=== PATIENT | female | born 1980 | race Caucasian/White ===

== ENCOUNTER 2017-06-17 12:28 | Emergency (ER) | payer MEDICAID ==
[2013-11-24 09:08] VITALS: BMI 36.4
[~2017-06-17 12:28] MED LIST: ADVAIR 250/501 DISK INH; HYDROCODONE-APA1 TAB PO; VENTOLIN HFA18 GM INH; ZANAFLEX4 MG PO
== END 2017-06-17 15:02 | disposition home or self-care (01) ==
LOC: D.ER 12:28
DX: M25.552 Pain in left hip (principal); M54.5 Low back pain; F17.200 Nicotine dependence, unspecified, uncomplicated

== ENCOUNTER → 2017-07-08 12:45 | Outpatient (CLI) | payer MEDICAID ==
[2013-11-24 09:08] VITALS: BMI 36.4
== END | disposition home or self-care (01) ==
LOC: D.CT 12:45
DX: J34.1 Cyst and mucocele of nose and nasal sinus (principal)

== ENCOUNTER 2017-07-13 17:19 | Emergency (ER) | payer MEDICAID ==
[2013-11-24 09:08] VITALS: BMI 36.4
== END 2017-07-13 19:00 | disposition left against medical advice (07) ==
LOC: D.ER 17:19
DX: R10.84 Generalized abdominal pain (principal)

== ENCOUNTER 2017-07-23 05:20 | Day surgery (SDC) | payer MEDICAID ==
[2017-07-22 09:06] LABS: BASOPHILS 0.3 % (0-2); EOSINOPHILS 1.2 % (0-7); HEMOGLOBIN 14.1 g/dL (12-16); IMMATURE GRANULOCYTES 0.3 % (0-5); LYMPHOCYTES 24.5 % (15-50); MCHC 33.6 g/dL (31.0-37.0); MCV 89.4 fL (80.0-100.0); MEAN PLATELET VOLUME 11.8 fL (7.4-10.4); MONOCYTES 7.9 % (2-11); NEUTROPHILS 65.8 % (40-80); RDW 12.6 % (11.5-14.5); WBC 11.1 10x3/uL (4.8-10.8)
[2017-07-22 09:10] LABS: CALC OSMOLALITY 276 mosm/kg (275-300); CALCIUM 9.3 mg/dL (8.5-10.1); CARBON DIOXIDE 26.4 mmol/L (21.0-32.0); CHLORIDE - SERUM 103 mmol/L (98-107); CREATININE - SERUM 0.8 mg/dL (0.6-1.3); GLUCOSE 98 mg/dL (74-106); PLATELET COUNT 366 10x3/uL (130-400); POTASSIUM - SERUM 4.5 mmol/L (3.5-5.1); SODIUM 139 mmol/L (136-145); UREA NITROGEN 10 mg/dL (7-18); eGFR NON AFRICAN AMERICAN 86 mL/min (90-120)
[~2017-07-23] VITALS: Ht 162.6 cm; Wt 99.3 kg
--- NOTE | ~2017-07-23 | OP ---
PATIENT NAME: CARMENZA FAJARDO MEDICAL RECORD: [id number] :82 LOCATION:[facility] ADMISSION DATE: SURGEON: ANDRES BROWN MD DATE OF OPERATION: 07/23/2017 PREOPERATIVE DIAGNOSIS: Right anterior thigh sebaceous cyst (3 cm). POSTOPERATIVE DIAGNOSIS: Right anterior thigh sebaceous cyst (3 cm). PROCEDURE: Excision of 3 cm right anterior thigh sebaceous cyst. SURGEON: Andres Brown MD REPORT OF PROCEDURE: The patient's right lower extremity was prepped and draped in sterile fashion. A transverse ovoid incision was made overlying the sebaceous cyst. Using sharp dissection, we came around the sebaceous cyst and removed it in total without ever penetrating the cyst. The surrounding tissue was fatty with some inflammatory changes, but no sign of acute infection. The wound was irrigated out with normal saline and any bleeding from the tissues was treated with electrocautery. The subcutaneous tissues were reapproximated with interrupted 3-0 Vicryl and the skin was closed with running subcutaneous 5-0 Monocryl. A total of 10 mL of 0.25% Marcaine with epinephrine was infused into the surrounding tissues and the wound was dressed appropriately. COMPLICATIONS: None. CONDITION: Stable. ANESTHESIA: General endotracheal and local. BLOOD LOSS: Minimal. TRANSINT:[id number] Voice Confirmation ID: [id number] DOCUMENT ID: [id number] ANDRES BROWN MD at 1052 CC: YADIRA WILLOUGHBY MD [id number] DICTATION DATE: 07/23/17 0848 FRAME FIXER: 07/23/17 1128 [facility] 07/23/17 [place] [id number]
[2017-07-23 06:42] VITALS: BP 127/74; Ht 162.6 cm; Wt 99.3 kg
[2017-07-23] MEDS ORDERED: HYDROCODONE-APA1 TAB PO (08:45)
== END 2017-07-23 10:15 | disposition home or self-care (01) ==
LOC: D.OPS 05:20 → D.PAN 07:30 → D.OPS 08:00
PROVIDERS: Surgery
DX: L72.0 Epidermal cyst (principal); Z01.812 Encounter for preprocedural laboratory examination

== ENCOUNTER → 2017-08-19 13:02 | Outpatient (CLI) | payer MEDICAID ==
[2017-07-23 06:42] VITALS: BMI 37.6
== END | disposition home or self-care (01) ==
LOC: D.MRI 13:02
DX: M54.2 Cervicalgia (principal); M54.14 Radiculopathy, thoracic region; M54.5 Low back pain